=== PATIENT | female | born 1980 | race Asian ===

== ENCOUNTER 2021-02-20 16:31 | Emergency (ER) | payer BC ==
[~2021-02-20] VITALS: Ht 157.5 cm; Wt 75.5 kg
--- NOTE | 2021-02-20 16:46 | NUR ---
PT WAS AT WORK AT [employer] WAS CLOSING HEAVY DOOR AND START FEELING SHORT OF BREATH, WHEN EMS ARRIVED PT IN SVT HR 175, 6 MG OF ADENOSINE ADMINISTERED AND PT CONVERTED TO SR HR 90'S. EKG PREFORMED AT BEDSIDE, PT ATTACHED TO ALL MONITORS, SR 90'S, VSS, NADN, AT BEDSIDE, AWAITING ORDERS.
--- NOTE | 2021-02-20 17:11 | NUR ---
PT DENIES CP AND DIZZINESS AT THIS TIME.
[2021-02-20 17:25] LABS: BASOPHILS % (AUTO) 0 % (0-1); EOSINOPHILS % (AUTO) 1 % (1-7); LYMPHOCYTES % (AUTO) 28 % (22-44); MEAN CORPUSCULAR HGB CONC 33.5 g/dL (32.4-35.8); MEAN PLATELET VOLUME 6.9 fL (7.4-10.4); MONOCYTES % (AUTO) 6 % (2-9); NEUTROPHILS % (AUTO) 66 % (42-75); PLATELET COUNT 353 x10^3/uL (130-400); RED BLOOD COUNT 4.42 x10^6/uL (3.82-5.3); RED CELL DISTRIBUTION WIDTH 13.7 % (9.6-15.2)
[2021-02-20 17:26] LABS: MD NO
[2021-02-20 17:35] LABS: ANION GAP 7 mmol/L (5-15); CHLORIDE 106 mmol/L (98-107); CREATININE 0.77 mg/dL (0.55-1.02)
[2021-02-20 17:39] LABS: TROPONIN I < 0.015 ng/mL (0.000-0.045)
--- NOTE | 2021-02-20 18:06 | NUR ---
Patient given discharge instructions and they have confirmed that they understand the instructions. Patient ambulatory with steady gait.
== END 2021-02-20 18:22 | disposition home or self-care (01) ==
LOC: ED 18:15 → MERGE 18:15 → ED 18:22
DX: I47.1 Supraventricular tachycardia (principal); R00.2 Palpitations; R06.02 Shortness of breath; R07.89 Other chest pain; I10 Essential (primary) hypertension; E78.00 Pure hypercholesterolemia, unspecified; Z87.891 Personal history of nicotine dependence
CPT/HCPCS: 36415; 71045; 80048; 82040; 83735; 84484; 84703; 85025; 93005; 99285

== ENCOUNTER 2021-04-10 06:06 | Day surgery (SDC) | payer BC ==
[~2021-04-10] VITALS: Ht 154.9 cm; Wt 74.8 kg
[2021-04-10 06:51] VITALS: BP 99/67
[2021-04-10] MEDS ORDERED: SODIUM CHLORIDE 0.9% 1,000 ML IV SCH (07:00)
[2021-04-10] MEDS ORDERED: FENTANYL PF 100 MCG/2ML ONE (07:05)
[2021-04-10] MEDS ORDERED: MIDAZOLAM 1 MG/ML, 2ML ONE (07:05)
[2021-04-10] MEDS ORDERED: ADENOSINE 6 MG/2 ML ONE (07:05)
[2021-04-10] MEDS ORDERED: ISOPROTERENOL 0.2MG/ML, 5ML ONE (07:05)
[2021-04-10] MEDS ORDERED: LOSA100T14 PO (07:06)
[2021-04-10] MEDS ORDERED: SIMV40TA20 PO (07:06)
[2021-04-10] MEDS ORDERED: IBUP200C8 PO (07:06)
[2021-04-10] MEDS ORDERED: LIDOCAINE 1%, 20ML ONE (07:06)
[2021-04-10] MEDS ORDERED: HYDR12.517 PO (07:06)
[2021-04-10] MEDS ORDERED: ACETAMINOPHEN 325 MG TABLET PO PRN (09:30)
[2021-04-10] MEDS ORDERED: PLEASE ENTER ALLERGIES MC SCH (10:00)
[2021-04-10] MEDS ORDERED: SIMVASTATIN 40 MG TABLET PO SCH (21:00)
[2021-04-11] MEDS ORDERED: LOSARTAN 100 MG TAB PO SCH (09:00)
[2021-04-11] MEDS ORDERED: HYDROCHLOROTHIAZIDE 12.5 MG CAPSULE PO SCH (09:00)
== END 2021-04-10 14:00 | disposition home or self-care (01) ==
LOC: CACL 06:06
PROVIDERS: ATTEND Internal Medicine Cardiovascular Disease
DX: I47.1 Supraventricular tachycardia (principal); I10 Essential (primary) hypertension; E78.2 Mixed hyperlipidemia; E66.3 Overweight; Z68.30 Body mass index [BMI] 30.0-30.9, adult; Z79.899 Other long term (current) drug therapy
CPT/HCPCS: 36415; 71046; 84702; 93005; 93613; 93621; 93623; 93653; 99156; 99157; C1730; C1894; C2630; J2250; J3010; 93620; J0153